=== PATIENT | male | born 1975 | race Caucasian/White ===

== ENCOUNTER 2018-05-14 10:33 | Outpatient (CLI) | payer SELFPAY ==
--- NOTE | 2018-05-14 10:25 | DI.RAD_ITS ---
SYMPTOMS/DIAGNOSIS: SHOULDER PAIN, M25.512 LEFT SHOULDER: There is spurring at the AC joint. Glenohumeral joint space is well maintained. There is mild spurring at the glenoid. Spurring is also seen at the greater tuberosity. IMPRESSION: Degenerative changes.
== END 2018-05-14 10:53 ==
PROVIDERS: PCP Internal Medicine; Visit Provider Internal Medicine
DX: M25.512 Pain in left shoulder (principal); M19.012 Primary osteoarthritis, left shoulder
CPT/HCPCS: 73030

== ENCOUNTER 2022-12-08 19:38 | Emergency (ER) | payer SELFPAY ==
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
[2022-12-08 20:30] VITALS: BP 128/75; PULSE 66; RESP 16; TEMP 37; O2SAT 99
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
== END 2022-12-08 23:13 | disposition home or self-care (01) ==
PROVIDERS: Emergency Provider Emergency Medicine Emergency Medical Services; PCP Internal Medicine
DX: S80.212A Abrasion, left knee, initial encounter (principal); M70.42 Prepatellar bursitis, left knee; V29.99XA Rider (driver) (passenger) of other motorcycle injured in unspecified traffic accident, initial encounter
CPT/HCPCS: 99283; 73564